=== PATIENT | male | born 1945 | race Caucasian/White ===

== ENCOUNTER 2021-12-28 13:53 | Day surgery (SDC) | payer MEDICARE, OTHER ==
--- NOTE | 2021-12-28 18:29 | XRAY ---
Indication: Right SI joint injection. Intraoperative fluoroscopy provided for 21 seconds. 2 digital spot image submitted for interpretation demonstrates posterior needle tip projecting over the inferior right SI joint. Correlate with intraoperative findings/report.
--- NOTE | 2021-12-29 08:36 | XRAY ---
21 seconds fluoroscopy time in surgery for injection of the right SI joint.
== END 2021-12-28 17:41 | disposition home or self-care (01) ==
LOC: SDC-PAIN 13:53
PROVIDERS: ATTEND Psychiatry & Neurology Pain Medicine
DX: M46.1 Sacroiliitis, not elsewhere classified (principal); E11.9 Type 2 diabetes mellitus without complications; Z79.899 Other long term (current) drug therapy
CPT/HCPCS: 27096; 72020; 77002; 82947; G0260

== ENCOUNTER 2022-01-25 14:15 | Day surgery (SDC) | payer MEDICARE, OTHER ==
[2022-01-25] MEDS ORDERED: BUPIVACAINE 0.5% VIAL IJ ONE (14:16)
[2022-01-25] MEDS ORDERED: Xylocaine 1% Vial 30 ML PF IJ ONE (14:16)
[2022-01-25] MEDS ORDERED: Depo-Medrol 40 MG/ML IM ONE (14:16)
[2022-01-25] MEDS ORDERED: Lactated Ringers 1,000 ML IV ONE (16:03)
--- NOTE | 2022-01-25 18:49 | XRAY ---
Indication: Right SI joint injection. Intraoperative fluoroscopy provided for 12 seconds. 2 digital spot image submitted for interpretation demonstrates posterior needle tip projecting over the inferior right SI joint. Correlate with intraoperative findings/report.
--- NOTE | 2022-01-25 18:54 | XRAY ---
12 seconds fluoroscopy time in surgery for injection of the right SI joint.
== END 2022-01-25 17:30 | disposition home or self-care (01) ==
LOC: SDC-PAIN 14:15
PROVIDERS: ATTEND Psychiatry & Neurology Pain Medicine
DX: M46.1 Sacroiliitis, not elsewhere classified (principal); E11.9 Type 2 diabetes mellitus without complications; Z79.899 Other long term (current) drug therapy
CPT/HCPCS: 27096; 72020; 77002; G0260; J1030; J2001